=== PATIENT | female | born 1950 | race Caucasian/White ===

== ENCOUNTER → 2019-07-28 | Outpatient (CLI) | payer MEDICARE, BC ==
[2019-07-28 16:00] LABS: HCT 38.5 % (34.0-46.0); HGB 13.3 gm/dL (11.4-16.0); MCH 31.3 pg (25.0-35.0); MCHC 34.6 g/dL (31.0-37.0); MCV 90.4 fL (80.0-100.0); Platelet Count 241 k/uL (150-450); RBC 4.25 m/uL (3.80-5.40); RDW 11.9 % (11.5-15.5); WBC 5.3 k/uL (3.8-10.6)
[2019-07-28 16:01] LABS: Appearance,Urine Clear (Clear); Bilirubin,Urine Negative (Negative); Blood,Urine Negative (Negative); Color,Urine Yellow; Glucose,Urine (UA) Negative (Negative); Ketones,Urine Negative (Negative); Leukocyte Esterase,Urine Negative (Negative); Nitrite,Urine Negative (Negative); PH, Urine 5.5 (5.0-8.0); Protein,Urine Negative (Negative); Specific Gravity,Urine 1.008 (1.001-1.035); Urobilinogen,Urine <2.0 mg/dL (<2.0)
[2019-07-28 16:05] LABS: Partial Thromboplastin Time 26.6 sec (22.0-30.0); Prothrombin Time 10.2 sec (9.0-12.0)
[2019-07-28 16:06] LABS: ALT 26 U/L (9-52); AST 29 U/L (14-36); African American GFR (CKD) >90 (>60 ml/min/1.73 sqM); Albumin 3.8 g/dL (3.5-5.0); Alkaline Phosphatase 82 U/L (38-126); Anion Gap 7 mmol/L; Blood Urea Nitrogen 11 mg/dL (7-17); Calcium 9.9 mg/dL (8.4-10.2); Carbon Dioxide 25 mmol/L (22-30); Chloride 105 mmol/L (98-107); Glucose 119 mg/dL (74-99); Non-African American GFR(CKD) 86 (>60 ml/min/1.73 sqM); Potassium 4.3 mmol/L (3.5-5.1); Sodium 137 mmol/L (137-145); Total Bilirubin 0.5 mg/dL (0.2-1.3); Total Protein 6.8 g/dL (6.3-8.2)
== END | disposition home or self-care (01) ==
LOC: LABPAT 15:10
PROVIDERS: ATTEND Orthopaedic Surgery
DX: Z01.812 Encounter for preprocedural laboratory examination (principal); Z79.01 Long term (current) use of anticoagulants
CPT/HCPCS: 36415; 80053; 81003; 85027; 85610; 85730; 87070

== ENCOUNTER → 2019-08-09 | Outpatient (CLI) | payer MEDICARE, BC | END | disposition home or self-care (01) | LOC: LABPAT 12:40 | PROVIDERS: ATTEND Orthopaedic Surgery | DX: Z53.9 Procedure and treatment not carried out, unspecified reason (principal) ==

== ENCOUNTER 2019-08-12 05:34 | Inpatient (IN) | payer MEDICARE, BC ==
[2019-08-10 14:38] VITALS: BMI 30.7
[~2019-08-12 05:34] MED LIST: ACETAMINOPHEN TAB 500 MG TAB PO ONE; GABAPENTIN 300 MG CAP PO ONE; MELOXICAM 7.5 MG TAB PO ONE; ONDANSETRON 4 MG/2 ML VIAL IVP ONE
[2019-08-12] MEDS ORDERED: DEXAMETHASONE SOD PHOSPHATE 10 MG/ML 1 ML VIAL IV ONE (05:46)
[2019-08-12] MEDS ORDERED: MIDAZOLAM 2 MG/2 ML VIAL IV PRN (05:46)
[2019-08-12] MEDS ORDERED: HYDROmorphone 0.5 MG/0.5 ML SYRINGE IVP PRN ×4 (05:46→07:00)
[2019-08-12 06:19] LABS: Glucose,Whole Blood 94 mg/dL (75-99)
[2019-08-12] MEDS: LACTATED RINGERS 1,000 ML IV SCH (06:20)
[2019-08-12] MEDS ORDERED: LIDOCAINE 1% 20 ML VIAL (10MG/ML) FOR IV START INTRADERMA ONE (06:21)
[2019-08-12] MEDS ORDERED: PROPOFOL 10 MG/ML 20 ML VIAL IV ONE (06:54)
[2019-08-12] MEDS ORDERED: MIDAZOLAM 2 MG/2 ML VIAL ONE (06:54)
[2019-08-12] MEDS ORDERED: diphenhydrAMINE 50 MG/ML 1 ML VIAL ONE (06:54)
[2019-08-12] MEDS ORDERED: fentaNYL (PF) 50 MCG/ML 2 ML AMP ONE (06:54)
[2019-08-12] MEDS ORDERED: ePHEDrine SULFATE/0.9% NACL/PF 50 MG/5 ML SYRINGE IV ONE (06:54)
[2019-08-12] MEDS ORDERED: ONDANSETRON 4 MG/2 ML VIAL ONE (06:54)
[2019-08-12] MEDS ORDERED: LACTATED RINGERS 1,000 ML BAG IV ONE (06:54)
[2019-08-12] MEDS ORDERED: SODIUM CHLORIDE 0.9% 100 ML BAG ONE (06:54)
[2019-08-12] MEDS ORDERED: TRANEXAMIC ACID 1,000 MG/10 ML VIAL ONE (06:54)
[2019-08-12] MEDS ORDERED: hydrOXYzine PAMOATE 25 MG CAP PO PRN (07:00)
[2019-08-12] MEDS ORDERED: DIAZEPAM 5 MG TAB PO PRN (07:00)
[2019-08-12] MEDS ORDERED: HYDROcodone/APAP 5-325MG 1 EACH TAB PO PRN (07:00)
[2019-08-12] MEDS ORDERED: MAGNESIUM HYDROXIDE 2,400 MG/10 ML CUP PO PRN (07:00)
[2019-08-12] MEDS ORDERED: NALOXONE 0.4 MG/ML 1 ML VIAL IV PRN (07:00)
[2019-08-12] MEDS ORDERED: TRANEXAMIC ACID 1,000 MG in SODIUM CHLORIDE 0.9% 100 ML IVPB ONE ×4 (07:15)
[2019-08-12] MEDS ORDERED: ceFAZolin 3,000 MG in SODIUM CHLORIDE 0.9% IRRIGATIO 3,000 ML IRRIGATION ONE (07:34)
[2019-08-12] MEDS: ROPIVACAINE 246.25 MG, EPINEPHrine 0.5 MG, KETOROLAC 30 MG, cloNIDine HCL/PF 80 MCG, WA... MISCELLANE ONE ×10 (07:34→08:12)
[2019-08-12] MEDS ORDERED: LACTATED RINGERS 1,000 ML IV ONE (08:24)
--- NOTE | 2019-08-12 08:33 | P.OP ---
Date of Procedure: 08/12/19 Preoperative Diagnosis: Severe osteoarthritis right hip Postoperative Diagnosis: Severe osteoarthritis right hip Procedure(s) Performed: Right total hip arthroplasty with a direct anterior approach Implants: Land and nephew Polarstem size 2 standard Land [employer] Nephew R3, 3 hole acetabular shell, 48 mm Land [employer] Nephew reflection 6.5 mm cancellus screw, 20 mm 2 Land [employer]hew R3, XLPE 20 acetabular liner Land [employer] Nephew Oxinium femoral head 32 m, +0 All components were press-fit. The articulation is Oxinium on polyethylene. Anesthesia: spinal Surgeon: Eric Trammell Laborer Pipeline #1: Bailey Hanley Estimated Blood Loss (ml): 100 Pathology: other (Femoral head) Condition: stable Disposition: PACU Indications for Procedure: After failure of conservative treatment we discussed the surgical and nonsurgical treatment options at length. Patient wishes to proceed with a total hip arthroplasty with a direct anterior approach. Complications specific to this procedure were discussed at length, including but not limited to infection, leg length discrepancy, dislocation, and nerve injury. Patient is aware of all these complications and informed consent was obtained Operative Findings: The operative findings are consistent with severe osteoarthritis of the right hip Description of Procedure: Patient was seen and evaluated in the preoperative area, consent was reviewed, and the surgical site was marked with a skin marker. Patient was then brought to the operating room and given prophylactic antibiotics intravenously. 1 g of Tranexamic acid was also given. A spinal anesthetic was administered by the anesthesia department. The patient was then placed on the [place] table with the bony prominences well-padded. The hip area was then prepped and draped in usual sterile fashion. A universal timeout was then performed, which confirmed the patient's name, surgical site, ALLERGIES, and procedure being performed. Next the incision site was located at 1 cm distal and 1 cm lateral to the anterior superior iliac spine. The skin and subcutaneous tissues were sharply incised. Incision was carefully dissected down to the fascia overlying the tensor fascia cruz muscle. This fascia was then incised in line with the incision. Next, using blunt finger dissection, the tensor fascia cruz muscle was dissected off its investing fascia. The muscle was then carefully retracted laterally with a cobra retractor over the lateral neck of the femur. Next, the circumflex vessels were identified and cauterized using the AquaMantis device. The anterior hip capsule was then exposed. The capsule was then opened and an inverted T fashion. Cobra retractors were then placed intracapsularly. The proximal femur was then visualized. The femoral neck was then osteotomized appropriate level above the lesser trochanter. Small amount of traction was placed with the [place] table. A small wedge of bone was then removed from the remaining femoral head. Next, using a corkscrew femoral head was easily removed from the acetabulum. On gross visual inspection, the femoral head had complete loss of articular cartilage in multiple periarticular osteophytes. Attention was then turned to the acetabulum. the acetabulum was exposed and any remaining labrum was excised. Sequential reaming of the acetabulum was performed using fluoroscopic guidance. When the appropriate size was reached, a trial was then placed. The position and fit of the trial was checked with fluoroscopy. The trial was then removed. Then, using fluoroscopic guidance, the final implant was impacted at 20 of anteversion and 40 of abduction, and fully seated in the acetabulum. 2 screws were then placed in the acetabulum. Again fluoroscopy was used to check position of the screws. Next, the liner was then impacted, with a 20 elevated liner located in the anterior superior quadrant. Component locking was confirmed. Attention was then directed to the femur. With the aid of the [place] table, the femur was externally rotated to approximately 130, extended, and abducted under the opposite leg. A side hook was then placed under the proximal femur, and the side hook elevator was used to elevate the proximal femur. Retractors were then placed. A capsular release was performed, as well as a release of the conjoined tendon, which afforded excellent visualization of the proximal femur. Next, a box osteotome was used to lateralize the proximal femur. A hand ii blocker was then used to locate the femoral canal. Sequential broaching was then performed with appropriate size which afforded excellent fixation in the proximal femur. A trial was then placed with appropriate head and neck, and the hip was gently reduced with the aid of the [place] table. Fluoroscopy was then used to check position of the components, as well as to ensure equal leg lengths. The hip was then gently dislocated and the trials were then removed. Final implants were then impacted and the hip was again reduced. Final fluoroscopic x-rays confirmed that the components were in anatomic position, as well as equal leg lengths. The hip was also taken through range of motion, and found to be stable. The hip was then copiously irrigated with antibiotic solution with pulsatile lavage. The hip was then irrigated with Irrisept solution. The soft tissues were then injected with a ropivacaine solution, which consisted of 246.25 mg of ropivacaine, 0.5 mg of epinephrine, 30 mg of Toradol, 80 g of clonidine, and 48.45 mL of sterile water, for a total of 100 mL of fluid injected. A second dose of 1 g of Tranexamic acid was also given. the fascia was then closed with 2-0 strata fix suture. The subcutaneous tissue was closed with 3-0 Vicryl. The subcuticular tissue was closed with 3-0 strata fix suture. The skin was then closed with Dermabond glue and a sterile silver dressing. The patient was then transferred to the recovery room in stable condition. The store assistant BERRY Sage was required due to the complexity of surgery, and the need for skilled operating room surgical technologist for positioning, draping, exposure, retraction, and closure of the wound.
[2019-08-12 08:50] LABS: Glucose,Whole Blood 171 mg/dL (75-99)
--- NOTE | 2019-08-12 10:02 | XR ---
Right hip HISTORY: Status post right hip arthroplasty Single frontal view of the right hip Patient is status post right hip arthroplasty. There is anatomic alignment. Lucency present in the so ft tissues compatible with postop state IMPRESSION: Orthopedic follow-up
--- NOTE | 2019-08-12 11:02 | XR ---
EXAMINATION TYPE: XR Hip Limited RT DATE OF EXAM: 08/12/2019 COMPARISON: NONE HISTORY: Postop TECHNIQUE: One view submitted. FINDINGS: There is postsurgical change in near anatomic alignment. There is soft tissue edema and emphysema. IMPRESSION: 1. Postoperative change. Appears in near-anatomic alignment.
[2019-08-12] MEDS: SODIUM CHLORIDE 0.9% 1,000 ML IV SCH ×2 (13:44→21:39)
--- NOTE | 2019-08-12 15:56 | FL ---
EXAMINATION TYPE: FL guidance operating room DATE OF EXAM: 08/12/2019 HISTORY: Flouroscopy time 40 seconds of fluoroscopy provided. IMPRESSION: 1. Fluoroscopy time.
[2019-08-12] MEDS: HYDROcodone/APAP 5-325MG 1 EACH TAB PO PRN ×2 (16:02→21:17)
[2019-08-12] MEDS: PROMETHAZINE 25 MG TAB PO PRN ×2 (16:02→21:17)
[2019-08-12] MEDS ORDERED: ALBUTEROL NEBULIZED 2.5 MG/3 ML INHALATION PRN (16:11)
[2019-08-12] MEDS ORDERED: ZOLPIDEM 10 MG TAB PO PRN (16:11)
[2019-08-12] MEDS ORDERED: MONTELUKAST 10 MG TAB PO SCH (21:00)
[2019-08-12] MEDS ORDERED: METOPROLOL SUCCINATE (ER) 25 MG TAB.ER.24H PO SCH (21:00)
[2019-08-12] MEDS ORDERED: metFORMIN 500 MG TAB PO SCH (21:00)
[2019-08-12] MEDS ORDERED: SENNOSIDES-DOCUSATE SODIUM 1 EACH TAB PO SCH (21:00)
[2019-08-12] MEDS ORDERED: ATORVASTATIN 20 MG TAB PO SCH (21:00)
[2019-08-12] MEDS ORDERED: DRY MOUTH SPRAY 44.3 SPRAY/44.3 ML SPRAY MUCOUS MEM PRN (22:30)
[2019-08-13 02:37] VITALS: RESP 16
[2019-08-13] MEDS: HYDROcodone/APAP 5-325MG 1 EACH TAB PO PRN ×2 (04:05→10:39)
[2019-08-13] MEDS: LACTATED RINGERS 1,000 ML IV SCH (05:22)
[2019-08-13] MEDS ORDERED: LEVOTHYROXINE 112 MCG TAB PO SCH (06:30)
[2019-08-13] MEDS ORDERED: PANTOPRAZOLE 40 MG TABLET PO SCH (07:30)
[2019-08-13 07:48] VITALS: BP 103/64; PULSE 60; TEMP 97.8
[2019-08-13 08:10] LABS: Glucose,Whole Blood 100 mg/dL (75-99)
--- NOTE | 2019-08-13 08:11 | P.DS ---
Providers Date of admission: 08/12/19 05:34 Expected date of discharge: 08/13/19 Attending physician: Eric Trammell Consults: 08/12/19 07:00 Consult Physician Routine Consulting Provider: Lc Pulliam Consult Reason/Comments: medical management and anticoagulation Do you want consulting provider notified?: Yes Primary care physician: Yony Sanders - Discharge Diagnosis(es) (1) Osteoarthritis of right hip Current Visit: Yes Status: Acute (2) S/P total hip arthroplasty Current Visit: Yes Status: Acute Hospital Course: This is a 69-year-old female with known history of degenerative arthritis of the right hip. The patient presents for evaluation. After discussion and consideration patient elects to proceed with total hip arthroplasty. The patient is seen preoperatively by Dr. Trammell and medically cleared for surgery by their primary care physician. Patient is admitted to [facility] on 08/12/2019 for total hip arthroplasty. The procedures performed without complication or sequelae. The patient is doing well postoperatively. Labs and vital signs are stable on day of discharge. On day of discharge patient's hip incision is healing well. There is minimal erythema. There is no drainage noted at this time. There is minimal soft tissue swelling to the hip and thigh. Patient has full foot and ankle motion without difficulty or pain. Calf is soft and nontender to palpation. Neurovascular status to the right lower extremity is intact. Patient is discharged home in good condition. Opioid start talking form is reviewed and signed at patient bedside. Patient takes Xarelto routinely and will resume her normal dosing for postoperative anticoagulation. Please see med rec for accurate list of home medications. Plan - Discharge Summary Discharge Rx Participant: Yes New Discharge Prescriptions: New HYDROcodone/APAP 5-325MG [Mustang 5-325] 1 - 2 tab PO Q6HR PRN #56 tab PRN Reason: Pain Promethazine [Phenergan] 12.5 mg PO Q6HR #28 tablet Sennosides [Senokot] 2 tab PO DAILY PRN #60 tablet PRN Reason: Constipation No Action Zolpidem [Ambien] 10 mg PO HS PRN PRN Reason: Insomnia Montelukast [Singulair] 10 mg PO HS Metoprolol Succinate (ER) [Toprol Xl] 25 mg PO HS metFORMIN HCL ER [Glucophage Xr] 500 mg PO HS Rivaroxaban [Xarelto] 20 mg PO HS Esomeprazole Magnesium [NexIUM] 40 mg PO BID Celecoxib [CeleBREX] 200 mg PO DAILY Albuterol Nebulized [Ventolin Nebulized] 2.5 mg INHALATION Q6H PRN PRN Reason: Dyspnea Albuterol Inhaler [Ventolin Hfa Inhaler] 1 - 2 puff INHALATION RT-Q6H PRN PRN Reason: Dyspnea Losartan [Cozaar] 50 mg PO DAILY Levothyroxine Sodium [Synthroid] 112 mcg PO DAILY Rosuvastatin [Crestor] 10 mg PO HS Dexlansoprazole [Dexilant] 60 mg PO DAILY Discharge Medication List Albuterol Inhaler [Ventolin Hfa Inhaler] 1 - 2 puff INHALATION RT-Q6H PRN 08/10/19 [History] Albuterol Nebulized [Ventolin Nebulized] 2.5 mg INHALATION Q6H PRN 08/10/19 [History] Celecoxib [CeleBREX] 200 mg PO DAILY 08/10/19 [History] Dexlansoprazole [Dexilant] 60 mg PO DAILY 08/10/19 [History] Esomeprazole Magnesium [NexIUM] 40 mg PO BID 08/10/19 [History] Levothyroxine Sodium [Synthroid] 112 mcg PO DAILY 08/10/19 [History] Losartan [Cozaar] 50 mg PO DAILY 08/10/19 [History] Metoprolol Succinate (ER) [Toprol Xl] 25 mg PO HS 08/10/19 [History] Montelukast [Singulair] 10 mg PO HS 08/10/19 [History] Rivaroxaban [Xarelto] 20 mg PO HS 08/10/19 [History] Rosuvastatin [Crestor] 10 mg PO HS 08/10/19 [History] Zolpidem [Ambien] 10 mg PO HS PRN 08/10/19 [History] metFORMIN HCL ER [Glucophage Xr] 500 mg PO HS 08/10/19 [History] HYDROcodone/APAP 5-325MG [Mustang 5-325] 1 - 2 tab PO Q6HR PRN #56 tab 08/13/19 [Rx] Promethazine [Phenergan] 12.5 mg PO Q6HR #28 tablet 08/13/19 [Rx] Sennosides [Senokot] 2 tab PO DAILY PRN #60 tablet 08/13/19 [Rx] Follow up Appointment(s)/Referral(s): Eric Trammell DO [Doctor of Osteopathic Medicine] - 2 Weeks Ambulatory/Diagnostic Orders: Walker w/ Wheels [DME.AMB1] Time Frame: 3 Months, Location: None Selected Activity/Diet/Wound Care/Special Instructions: Weightbearing as tolerated with walker. Leave dressing intact. Dressing may be removed by home care nurse or by patient in 10 days. May shower with dressing on. Continue Xarelto for postoperative anticoagulation. Recommend use of compression stockings daily for at least 2 weeks during the day to help prevent swelling and blood clots. May remove at night before sleeping. Please follow-up with [facility] in 2 weeks and call with any questions or concerns, . Discharge Disposition: HOME WITH HOME HEALTH SERVICES
[2019-08-13 08:18] LABS: Basophils % (A) 0 %; Eosinophils # (A) 0.1 k/uL (0-0.7); Eosinophils % (A) 1 %; HCT 32.9 % (34.0-46.0); HGB 11.2 gm/dL (11.4-16.0); Lymphocytes # (A) 1.7 k/uL (1.0-4.8); Lymphocytes % (A) 27 %; MCH 30.9 pg (25.0-35.0); MCHC 33.9 g/dL (31.0-37.0); Mean Platelet Volume 6.9; Monocytes # (A) 0.4 k/uL (0-1.0); Monocytes % (A) 7 %; Neutrophils # (A) 4.1 k/uL (1.3-7.7); Neutrophils % (A) 64 %; Platelet Count 197 k/uL (150-450); RBC 3.61 m/uL (3.80-5.40); RDW 12.2 % (11.5-15.5); WBC 6.4 k/uL (3.8-10.6)
[2019-08-13] MEDS ORDERED: LOSARTAN 50 MG TAB PO SCH (09:00)
[2019-08-13] MEDS ORDERED: RIVAROXABAN 20 MG TAB PO SCH (09:00)
[2019-08-13] MEDS: PROMETHAZINE 25 MG TAB PO PRN (11:07)
[2019-08-13] MEDS: SODIUM CHLORIDE 0.9% 1,000 ML IV SCH (11:10)
[2019-08-13 11:23] LABS: Glucose,Whole Blood 126 mg/dL (75-99)
== END 2019-08-13 13:57 | disposition home health service (06) | DRG 470 ==
LOC: 2ORMAIN 05:34 → 4SSUR 08:29
PROVIDERS: ADMIT Orthopaedic Surgery; ATTEND Orthopaedic Surgery
PROC: 0SR906A Replacement of Right Hip Joint with Oxidized Zirconium on Polyethylene Synthetic Substitute, Uncemented, Open Approach (ICD-10-PCS; principal; 2019-08-12 07:00)
DX: M16.11 Unilateral primary osteoarthritis, right hip (principal); I48.0 Paroxysmal atrial fibrillation; M25.512 Pain in left shoulder; M25.511 Pain in right shoulder; M25.552 Pain in left hip; M25.562 Pain in left knee; M25.561 Pain in right knee; M25.542 Pain in joints of left hand; M25.541 Pain in joints of right hand; I10 Essential (primary) hypertension; E78.5 Hyperlipidemia, unspecified; J45.909 Unspecified asthma, uncomplicated; E11.9 Type 2 diabetes mellitus without complications; E03.9 Hypothyroidism, unspecified; K21.9 Gastro-esophageal reflux disease without esophagitis; R01.1 Cardiac murmur, unspecified; G47.9 Sleep disorder, unspecified; Z79.01 Long term (current) use of anticoagulants; Z79.890 Hormone replacement therapy; Z79.84 Long term (current) use of oral hypoglycemic drugs; Z79.899 Other long term (current) drug therapy; Z88.5 Allergy status to narcotic agent; Z98.84 Bariatric surgery status; Z96.651 Presence of right artificial knee joint; Z96.611 Presence of right artificial shoulder joint; Z87.11 Personal history of peptic ulcer disease; Z83.3 Family history of diabetes mellitus; Z82.49 Family history of ischemic heart disease and other diseases of the circulatory system
CPT/HCPCS: 36415; 73501; 85025; 86850; 86891; 86900; 86901; 88300

== ENCOUNTER → 2022-01-24 | Outpatient (CLI) | payer MEDICARE ==
[2022-01-24 17:29] LABS: INR 1.1 (<1.2)
[2022-01-24 17:30] LABS: Partial Thromboplastin Time 28.6 sec (22.0-30.0); Prothrombin Time 11.5 sec (9.0-12.0)
[2022-01-24 22:55] LABS: African American GFR (CKD) 86.6 (60.0-200.0); Albumin 4.1 g/dL (3.8-4.9); Albumin/Globulin Ratio 1.32 (1.60-3.17); Anion Gap 9.8 mmol/L (10.00-18.00); BUN/Creat Ratio 15.75 Ratio (12.00-20.00); Blood Urea Nitrogen 12.6 mg/dL (9.0-27.0); Calcium 10.1 mg/dL (8.7-10.3); Carbon Dioxide 22.2 mmol/L (20.0-27.5); Globulin 3.1 g/dL (1.6-3.3); Non-African American GFR(CKD) 74.7 (60.0-200.0); Potassium 4.1 mmol/L (3.5-5.5); Total Bilirubin 0.3 mg/dL (0.30-1.20); Total Protein 7.2 g/dL (6.2-8.2)
[2022-01-24 23:23] LABS: HCT 41.4 % (37.2-46.3); HGB 13.4 g/dL (12.0-15.0); MCHC 32.4 g/dL (32.0-37.0); MCV 92.6 fL (80.0-97.0); Mean Platelet Volume 9.4 fL (9.5-12.2); NRBC Per 100 WBC 0 /100 WBCS (0.0-0.0); Platelet Count 226 X 10*3/uL (140-440); RBC 4.47 X 10*6/uL (4.10-5.20); RDW 12.3 % (11.5-14.5)
[2022-01-25 04:39] LABS: Appearance,Urine Clear (Clear); Bacteria,Urine None Seen /HPF (None Seen); Bilirubin,Urine Small (Negative); Blood,Urine Negative (Negative); Calcium Oxalate Crystals,Urine Present /LPF (None Seen); Color,Urine Dark Yellow (Yellow); Ketones,Urine Trace mg/dL (Negative); Nitrite,Urine Negative (Negative); Specific Gravity,Urine >1.035 (1.001-1.030)
== END | disposition home or self-care (01) ==
LOC: LABPAT 16:52
PROVIDERS: ATTEND Orthopaedic Surgery
DX: Z01.812 Encounter for preprocedural laboratory examination (principal)
CPT/HCPCS: 36415; 80053; 81001; 85027; 85610; 85730; 87070; 93005

== ENCOUNTER 2022-02-05 09:54 | Day surgery (SDC) | payer BC, MEDICARE ==
[~2022-02-05 09:54] MED LIST changes: -ACETAMINOPHEN TAB 500 MG TAB PO ONE; +ACETAMINOPHEN TAB 500 MG TAB PO PRN; -GABAPENTIN 300 MG CAP PO ONE; +GABAPENTIN 300 MG CAP PO PRN; +LACTATED RINGERS 1,000 ML IV SCH; +LIDOCAINE 1% (10MG/ML) FOR IV START INTRADERMA PRN; -MELOXICAM 7.5 MG TAB PO ONE; +MELOXICAM 7.5 MG TAB PO PRN; +TRANEXAMIC ACID IN NACL,ISO-OS 1,000 MG in SALINE 1 100ML.BAG IVPB PRN; +fentaNYL (PF) 50 MCG/ML 2 ML AMP IV PRN
[2022-02-05 10:36] LABS: Glucose,Whole Blood 104 mg/dL (75-99)
[2022-02-05] MEDS ORDERED: DEXAMETHASONE SOD PHOSPHATE 4 MG/ML 1 ML VIAL IVP ONE (10:53)
[2022-02-05] MEDS ORDERED: SCOPOLAMINE 1 MG/72 HR PATCH TRANSDERM ONE (10:54)
[2022-02-05] MEDS ORDERED: MAGNESIUM HYDROXIDE 2,400 MG/10 ML CUP PO PRN (11:16)
[2022-02-05] MEDS ORDERED: NALOXONE 0.4 MG/ML 1 ML VIAL IV PRN (11:16)
[2022-02-05] MEDS ORDERED: ONDANSETRON 4 MG/2 ML VIAL IVP PRN (11:16)
[2022-02-05] MEDS ORDERED: diazePAM 5 MG TAB PO PRN (11:16)
[2022-02-05] MEDS ORDERED: HYDROmorphone 0.5 MG/0.5 ML SYRINGE IVP PRN ×2 (11:16)
[2022-02-05] MEDS ORDERED: traMADol 50 MG TAB PO PRN (11:16)
[2022-02-05] MEDS ORDERED: ACETAMINOPHEN TAB 325 MG TAB PO PRN (11:16)
[2022-02-05] MEDS ORDERED: HYDROcodone/APAP 7.5-325MG 1 EACH TAB PO PRN ×2 (11:20)
[2022-02-05] MEDS ORDERED: LIDOCAINE 2% INJ 20 MG/ML (2 ML VIAL) ONE (11:46)
[2022-02-05] MEDS ORDERED: PROPOFOL 10 MG/ML 20 ML VIAL IV ONE (11:46)
[2022-02-05] MEDS ORDERED: GLYCOPYRROLATE 0.2 MG/ML 2 ML VIAL ONE (11:46)
[2022-02-05] MEDS ORDERED: fentaNYL (PF) 50 MCG/ML 2 ML AMP ONE (11:46)
[2022-02-05] MEDS ORDERED: TRANEXAMIC ACID IN NACL,ISO-OS 1,000 MG/100 ML BAG ONE (11:46)
[2022-02-05] MEDS ORDERED: DIVALPROEX 250 MG TABLET.DR PO ONE (11:46)
[2022-02-05] MEDS ORDERED: MIDAZOLAM 2 MG/2 ML VIAL ONE (11:46)
[2022-02-05] MEDS ORDERED: ePHEDrine 50 MG/ML 1 ML VIAL ONE (11:46)
[2022-02-05] MEDS ORDERED: ROPIVACAINE 5 MG/ML 30 ML VIAL MISCELLANE ONE (12:31)
[2022-02-05] MEDS ORDERED: ceFAZolin 1,000 MG in SODIUM CHLORIDE 0.9% 1,000 ML IRRIGATION ONE (12:41)
--- NOTE | 2022-02-05 13:03 | P.OP ---
Date of Procedure: 02/05/22 Preoperative Diagnosis: Severe osteoarthritis left hip Postoperative Diagnosis: Severe osteoarthritis left hip Procedure(s) Performed: Left total hip arthroplasty with a direct anterior approach Implants: Land [employer] Nephew Polarstem standard size 2 Land [employer] Nephew R3, 3 hole hemispherical acetabular shell, 48 mm Land [employer] Nephew Reflection 6.5 mm cancellus screw, 20 mm 2 Land [employer] Nephew R3, XLPE 20 acetabular liner Land [employer] Nephew Oxinium femoral head 32 m, +0 All components were press-fit. The articulation is Oxinium on polyethylene. Anesthesia: spinal Surgeon: Eric Trammell Mechanic Chief #1: Prateek Jamil Estimated Blood Loss (ml): 200 Pathology: other (Femoral head) Condition: stable Disposition: PACU Indications for Procedure: After failure of conservative treatment we discussed the surgical and nonsurgical treatment options at length. Patient wishes to proceed with a total hip arthroplasty with a direct anterior approach. Complications specific to this procedure were discussed at length, including but not limited to infection, leg length discrepancy, dislocation, nerve injury, and fracture. Covid-19 was also discussed at length with the patient, and they are aware of the current policies and procedures. The patient was given the option of delaying surgery, but they elect to proceed knowing these risks. Patient is aware of all these complications and informed consent was obtained Operative Findings: The operative findings are consistent with severe osteoarthritis of the left hip Description of Procedure: Patient was seen and evaluated in the preoperative area and the consent was reviewed. The operative site was marked with a skin marker. The patient was then brought to the operating room and given preoperative antibiotics int ravenously. 1 g of Tranexamic acid was also given intravenously. A spinal anesthetic was administered by the anesthesia department. The patient was then placed on the [place] table with the bony prominences well-padded. The hip area was then prepped with a ChloraPrep solution and draped in the usual sterile fashion. A universal timeout was then performed, which confirmed the patient's name, dany gical site, ALLERGIES, and procedure being performed on the consent. Next the incision site was located at 1 cm distal and 2 cm lateral to the anterior superior iliac spine. The skin and subcutaneous tissues were sharply incised. Incision was carefully dissected down to the fascia overlying the tensor fascia cruz muscle. This fascia was then incised in line with the incision. Care was taken to stay laterally in order to avoid injuring the lateral femoral cutaneous nerve. Next, using blunt finger dissection, the tensor fascia cruz muscle was dissected off its investing fascia. The muscle was then carefully retracted laterally with a cobra retractor over the lateral neck of the femur. Next, the circumflex vessels were identified and cauterized using the AquaMantis device. The anterior hip capsule was then exposed. The capsule was then opened and an inverted T fashion. Cobra retractors were then placed intracapsularly. The retractors were maintained intracapsular throughout the procedure. The proximal femur was then visualized. Fluoroscopic x-rays were then taken in order to evaluate the preoperative leg lengths. A small amount of traction was placed on the leg. The femoral neck was then osteotomized at the appropriate level above the lesser trochanter. A small wedge of bone was then removed from the remaining femoral head. Next, using a corkscrew the femoral head was removed from the acetabulum. On gross visual inspection, the femoral head had complete loss of articular cartilage and multiple periarticular osteophytes. The femoral head was then measured. Attention was then turned to the acetabulum. The acetabulum was exposed and any remaining labrum was excised. Sequential reaming of the acetabulum was performed using fluoroscopic guidance until there was a good bed of bleeding cancellus bone. When the appropriate size was reached, a trial was then placed. The position and fit of the trial was checked with fluoroscopy. The trial was then removed. Then, using fluoroscopic guidance, the final implant was impacted at 20 of anteversion and 40 of abduction, and fully seated in the acetabulum. 2 screws were then placed in the acetabulum. Again fluoroscopy was used to check position of the screws. Next, the liner was then impacted, with a 20 elevated liner located in the anterior superior quadrant. Component locking was confirmed. Attention was then directed to the femur. With the aid of the [place] table, the femur was externally rotated to approximately 130, extended, and adducted under the opposite leg. A side hook was then placed under the proximal femur, and the side hook elevator was used to elevate the proximal femur while releasing the capsule. Retractors were then placed. A capsular release was performed, as well as a release of the conjoined tendon, which afforded excellent visualization of the proximal femur. Next, a box osteotome was used to lateralize the proximal femur. A merchandise processor was then used to locate the femoral canal. Sequential broaching was then performed with appropriate size which afforded excellent fixation in the proximal femur. A trial was then placed with appropriate head and neck, and the hip was gently reduced with the aid of the [place] table. Fluoroscopy was then used to check position of the components, as well as to ensure equal leg lengths. The hip was then gently dislocated and the trials were then removed. Final implants were then impacted and the hip was again reduced. Final fluoroscopic x-rays confirmed that the components were in anatomic position, as well as equal leg lengths. The hip was also taken through range of motion, and found to be stable. The hip was then copiously irrigated with antibiotic solution with pulsatile lavage. The hip was then irrigated with Irrisept solution. The soft tissues were then injected with a ropivacaine solution. A second dose of 1 g of Tranexamic acid was also given intravenously. The fascia was then closed with 2-0 strata fix suture. The subcutaneous tissue was closed with 3-0 Vicryl. The subcuticular tissue was closed with 3-0 strata fix suture. The skin was then closed with Exofin skin glue. After the glue and dried, and Optifoam silver impregnated dressing was applied. The patient was then transferred to the recovery room in stable condition. The housing assistant property manager BERRY Cannon was required due to the complexity of surgery, and the need for skilled surgical services tech for positioning, draping, exposure, retraction, and closure of the wound.
[2022-02-05] MEDS ORDERED: LACTATED RINGERS 1,000 ML IV ONE (13:12)
[2022-02-05 13:57] LABS: Glucose,Whole Blood 132 mg/dL (75-99)
--- NOTE | 2022-02-05 14:19 | XR ---
EXAMINATION TYPE: XR Hip Limited LT DATE OF EXAM: 02/05/2022 COMPARISON: NONE HISTORY: Postop TECHNIQUE: One view submitted. FINDINGS: There is postsurgical change in near anatomic alignment. There is soft tissue edema and emphysema. IMPRESSION: 1. Postoperative change. Appears in near-anatomic alignment.
[2022-02-05] MEDS ORDERED: ALBUTEROL NEBULIZED 2.5 MG/3 ML INHALATION PRN (15:54)
--- NOTE | 2022-02-05 15:56 | FL ---
EXAMINATION TYPE: FL guidance operating room DATE OF EXAM: 02/05/2022 HISTORY: Fluoroscopy time 47 seconds of fluoroscopy provided. IMPRESSION: 1. Fluoroscopy time.
[2022-02-05 16:24] LABS: HCT 41.3 % (34.0-46.0); HGB 13.2 gm/dL (11.4-16.0); MCH 29.8 pg (25.0-35.0); Mean Platelet Volume 7.1; RBC 4.44 m/uL (3.80-5.40); RDW 12.1 % (11.5-15.5); WBC 8.2 k/uL (3.8-10.6)
--- NOTE | 2022-02-05 16:27 | P.CONS ---
History of Present Illness - Reason for Consult Consult date: 02/05/22 - Chief Complaint Medical management - History of Present Illness 72-year-old woman with medical history of hypertension, hyperlipidemia, diabetes type 2, hypothyroidism, paroxysmal atrial fibrillation presented for elective left total hip arthroplasty. Medicine consulted for medical management. Patient has no medical complaints at this time, only complaint is very mild left hip pain. She denies fevers, chills, nausea, vomiting, chest pain, palpitations, syncope, presyncope, cough, dyspnea, abdominal pain, constipation, diarrhea, dysuria, dyschezia, numbness/weakness of extremities. Upon my evaluation, patient's afebrile, 150/67, heart rate 65, 98% or better. No labs to review. Hip x-rays demonstrate appropriate fixation status post left hip total arthroplasty. All Systems reviewed and pertinent positives and negatives noted in HPI, all other symptoms are negative Gen: in no apparent distress, resting comfortably in bed Eyes: PERRL, no scleral injection or icterus HENT: normocephalic, atraumatic, good hearing acuity, moist mucous membranes Neck: no tracheal deviation, full range of motion Resp: good air exchange, breathing comfortably with no accessory muscle use, no tactile fremitus CVS: good distal perfusion x 4, no pitting edema GI: soft, NTTP, ND, no hepatosplenomegaly : no suprapubic tenderness, no CVAT, gruber catheter not present MSK: no clubbing, no cyanosis, no noted contractures of extremities Skin: no noted rashes, petechiae; temperature of skin is appropriate Neuro: moving all extremities without signs of weakness, CN II-XII intact Psych: cooperative, euthymic mood, insight and judgment intact Labs and imaging as above Assessment/plan: Hypertension Hyperlipidemia Diabetes type 2 Hypothyroidism Paroxysmal atrial fibrillation Asthma Hx of PUD -Home medications reviewed and reconciled -low dose SSI Left hip osteoarthritis Status post left hip total arthroplasty -Timing of restart for Xarelto deferred to primary team -Pain control per primary team/anesthesia Patient is full code Past Medical History Past Medical History: Atrial Fibrillation, Asthma, Diabetes Mellitus, GERD/Reflux, Hyperlipidemia, Hypertension, Osteoarthritis (OA), Thyroid Disorder Additional Past Medical History / Comment(s): hiatal hernia History of Any Multi-Drug Resistant Organisms: None Reported Past Surgical History: Back Surgery, Bariatric Surgery, Section, Joint Replacement, Orthopedic Surgery Additional Past Surgical History / Comment(s): debbie. knees replaced, debbie. elbow & debbie. carpal tunnel, foot surg., stomach stapling back in 80's, TOTAL RIGHT HIP SURGERY, Past Anesthesia/Blood Transfusion Reactions: No Reported Reaction, Family History of Problems w/ Anesthesia, Motion Sickness Additional Past Anesthesia/Blood Transfusion Reaction / Comm: daughter had problems w/intubation Past Psychological History: No Psychological Hx Reported Smoking Status: Never smoker Past Alcohol Use History: Occasional Past Drug Use History: None Reported Additional Drug Use History / Comment(s): topical cream only but just occasionally - Past Family History Mother Family Medical History: No Reported History Brother(s) Family Medical History: Cancer Medications and Allergies Home Medications Medication Instructions Recorded Confirmed Type Albuterol Inhaler (Mhu) [Ventolin 1 - 2 puff INHALATION RT-Q6H PRN 08/10/19 02/01/22 History Hfa Inhaler] Celecoxib [CeleBREX] 200 mg PO DAILY 08/10/19 02/01/22 History Dexlansoprazole [Dexilant] 60 mg PO DAILY 08/10/19 02/01/22 History Esomeprazole Magnesium [NexIUM] 40 mg PO HS 08/10/19 02/01/22 History Levothyroxine Sodium [Synthroid] 112 mcg PO DAILY 08/10/19 02/01/22 History Losartan [Cozaar] 50 mg PO BID 08/10/19 02/01/22 History Metoprolol Succinate (ER) [Toprol 25 mg PO BID 08/10/19 02/01/22 History Xl] Montelukast [Singulair] 10 mg PO HS 08/10/19 02/01/22 History Rivaroxaban [Xarelto] 20 mg PO HS 08/10/19 02/01/22 History Rosuvastatin [Crestor] 10 mg PO HS 08/10/19 02/01/22 History Zolpidem [Ambien] 10 mg PO HS 08/10/19 02/01/22 History metFORMIN HCL ER [Glucophage Xr] 500 mg PO HS 08/10/19 02/01/22 History Venlafaxine HCl [Effexor] 25 mg PO BID 02/01/22 02/01/22 History Allergies Allergy/AdvReac Type Severity Reaction Status Date / Time morphine AdvReac Nausea & Verified 02/01/22 11:33 Vomiting pain medication AdvReac Nausea & Uncoded 02/01/22 11:33 Vomiting Physical Exam Osteopathic Statement: *. No significant issues noted on an osteopathic structural exam other than those noted in the History and Physical/Consult. Vitals: Vital Signs Temp Pulse Pulse Resp BP Pulse Ox 02/05/22 15:33 65 16 150/67 98 02/05/22 15:01 64 16 164/62 99 02/05/22 14:46 51 L 16 159/71 100 02/05/22 14:31 90 16 145/67 97 02/05/22 14:16 56 L 16 152/71 99 02/05/22 14:01 52 L 16 135/60 95 02/05/22 13:46 55 L 16 114/55 97 02/05/22 13:33 96.8 F L 59 L 12 101/51 98 02/05/22 10:47 98 F 56 L 20 183/86 98 Intake and Output 02/05/22 02/05/22 02/05/22 06:59 14:59 22:59 Intake Total 1051 300 Output Total 200 Balance 851 300 Intake: IV 1051 300 Output: Estimated Blood Loss 200 Other: Weight 92 kg Results Labs: Abnormal Lab Results - Last 24 Hours (Table) 02/05/22 02/05/22 Range/Units 10:28 13:55 POC Glucose (mg/dL) 104 H 132 H (75-99) mg/dL
[2022-02-05 16:34] LABS: African American GFR (CKD) >90 (>60 ml/min/1.73 sqM); Anion Gap 9 mmol/L; Blood Urea Nitrogen 10 mg/dL (7-17); Calcium 9.8 mg/dL (8.4-10.2); Carbon Dioxide 24 mmol/L (22-30); Chloride 107 mmol/L (98-107); Glucose 158 mg/dL (74-99); Non-African American GFR(CKD) >90 (>60 ml/min/1.73 sqM); Potassium 4.6 mmol/L (3.5-5.1); Sodium 140 mmol/L (137-145)
[2022-02-05] MEDS: MULTIVITAMINS, THERA 1 EACH TAB PO SCH (17:09)
[2022-02-05] MEDS: LACTATED RINGERS 1,000 ML IV SCH (17:09)
[2022-02-05 17:26] LABS: Lymphocytes # (M) 0.82 k/uL (1.0-4.8); Monocytes # (M) 0.16 k/uL (0-1.0); Neutrophils # (M) 7.22 k/uL (1.3-7.7); Neutrophils % (M) 88 %; Nucleated Red Blood Cells 0 /100 WBC (0-0); Total Cells Counted 100
[2022-02-05 17:28] LABS: Platelet Count 225 k/uL (150-450)
[2022-02-05] MEDS: HYDROmorphone 0.5 MG/0.5 ML SYRINGE IVP PRN ×2 (17:38→20:21)
[2022-02-05] MEDS: LOSARTAN 50 MG TAB PO SCH (20:15)
[2022-02-05] MEDS: METOPROLOL SUCCINATE (ER) 25 MG TAB.ER.24H PO SCH (20:15)
[2022-02-05] MEDS: VENLAFAXINE HCL 25 MG TAB PO SCH (20:16)
[2022-02-05] MEDS ORDERED: ASPIRIN 81 MG PO SCH (21:00)
[2022-02-05] MEDS ORDERED: TEMAZEPAM 15 MG CAP PO PRN (21:00)
[2022-02-05] MEDS ORDERED: SENNOSIDES-DOCUSATE SODIUM 1 EACH TAB PO SCH (21:00)
[2022-02-05] MEDS ORDERED: ZOLPIDEM 10 MG TAB PO SCH (21:00)
[2022-02-05] MEDS ORDERED: ATORVASTATIN 20 MG TAB PO SCH (21:00)
[2022-02-05] MEDS ORDERED: MONTELUKAST 10 MG TAB PO SCH (21:00)
[2022-02-05] MEDS ORDERED: PANTOPRAZOLE 40 MG TABLET PO SCH (21:00)
[2022-02-05 21:13] LABS: Glucose,Whole Blood 184 mg/dL (75-99)
[2022-02-05] MEDS ORDERED: PROMETHAZINE 25 MG TAB PO STA (21:39)
[2022-02-05] MEDS ORDERED: RIVAROXABAN 20 MG TAB PO SCH (21:45)
[2022-02-05] MEDS: BENZOCAINE/MENTHOL LOZENG 1 EACH LOZENGE MUCOUS MEM PRN (23:49)
[2022-02-06] MEDS: HYDROmorphone 0.5 MG/0.5 ML SYRINGE IVP PRN ×2 (02:58→08:49)
[2022-02-06] MEDS: BENZOCAINE/MENTHOL LOZENG 1 EACH LOZENGE MUCOUS MEM PRN (05:08)
[2022-02-06 06:25] LABS: Basophils % (A) 0 %; Eosinophils % (A) 0 %; HCT 37.1 % (34.0-46.0); HGB 12.3 gm/dL (11.4-16.0); Lymphocytes # (A) 1.5 k/uL (1.0-4.8); Lymphocytes % (A) 17 %; MCH 30.5 pg (25.0-35.0); MCHC 33.3 g/dL (31.0-37.0); MCV 91.8 fL (80.0-100.0); Mean Platelet Volume 7.5; Monocytes # (A) 0.5 k/uL (0-1.0); Monocytes % (A) 6 %; Neutrophils # (A) 6.7 k/uL (1.3-7.7); Neutrophils % (A) 75 %; Platelet Count 227 k/uL (150-450); RBC 4.04 m/uL (3.80-5.40); RDW 12.6 % (11.5-15.5)
[2022-02-06] MEDS ORDERED: LEVOTHYROXINE 112 MCG TAB PO SCH (06:30)
[2022-02-06 06:51] LABS: Glucose,Whole Blood 136 mg/dL (75-99)
[2022-02-06 07:19] LABS: African American GFR (CKD) >90 (>60 ml/min/1.73 sqM); Anion Gap 7 mmol/L; Blood Urea Nitrogen 10 mg/dL (7-17); Calcium 9.7 mg/dL (8.4-10.2); Carbon Dioxide 22 mmol/L (22-30); Chloride 109 mmol/L (98-107); Glucose 133 mg/dL (74-99); Non-African American GFR(CKD) >90 (>60 ml/min/1.73 sqM); Sodium 138 mmol/L (137-145)
[2022-02-06] MEDS: MULTIVITAMINS, THERA 1 EACH TAB PO SCH (07:29)
[2022-02-06] MEDS: METOPROLOL SUCCINATE (ER) 25 MG TAB.ER.24H PO SCH (07:29)
[2022-02-06] MEDS: VENLAFAXINE HCL 25 MG TAB PO SCH (07:29)
[2022-02-06] MEDS: LOSARTAN 50 MG TAB PO SCH (07:29)
[2022-02-06] MEDS ORDERED: PANTOPRAZOLE 40 MG TABLET PO SCH (07:30)
[2022-02-06 07:32] VITALS: BP 132/71; PULSE 61; RESP 17; TEMP 97.9
--- NOTE | 2022-02-06 08:20 | P.DS ---
Providers Expected date of discharge: 02/06/22 Attending physician: Eric Trammell Consults: 02/05/22 11:16 Consult Physician Routine Consulting Provider: Alanis Ansari Consult Reason/Comments: post op medical management Do you want consulting provider notified?: Yes Primary care physician: Lakesha Solis MD - Discharge Diagnosis(es) (1) Primary localized osteoarthritis of left hip Current Visit: Yes Status: Acute (2) Status post total hip replacement, left Current Visit: Yes Status: Acute Hospital Course: This is a 72 -year-old Female with known history of degenerative arthritis of the Left hip. The patient presents for evaluation. After discussion and consideration patient elects to proceed with total hip arthroplasty with direct anterior approach. The patient is seen preoperatively by primary care physician and cleared for surgery. Patient is admitted to [facility] on 02/05/2022 for total hip arthroplasty with direct anterior approach. The procedure is performed without complication or sequelae. The patient is doing well postoperatively. Labs and vital signs are stable on day of discharge. On day of discharge patient's hip incision is healing well. There is minimal erythema. There is no drainage noted at this time. There is minimal soft tissue swelling to the hip and thigh. Patient has full foot and ankle motion without difficulty or pain. Neurovascular status to the lower extremity is intact. Patient is discharged to home in good condition. Please see med rec for accurate list of home medications. Patient Condition at Discharge: Good Plan - Discharge Summary Discharge Rx Participant: Yes New Discharge Prescriptions: New Sennosides-Docusate Sodium [Senokot-S] 1 tab PO BID #60 tablet Ondansetron Odt [Zofran Odt] 4 mg PO Q8HR PRN #14 tab PRN Reason: Nausea HYDROcodone/APAP 7.5-325MG [[place] 7.5-325] 1 - 2 tab PO Q6HR PRN #32 tab PRN Reason: Pain No Action Zolpidem [Ambien] 10 mg PO HS Montelukast [Singulair] 10 mg PO HS Metoprolol Succinate (ER) [Toprol Xl] 25 mg PO BID metFORMIN HCL ER [Glucophage Xr] 500 mg PO HS Rivaroxaban [Xarelto] 20 mg PO HS Esomeprazole Magnesium [NexIUM] 40 mg PO HS Celecoxib [CeleBREX] 200 mg PO DAILY Albuterol Inhaler (Mhu) [Ventolin Hfa Inhaler] 1 - 2 puff INHALATION RT-Q6H PRN PRN Reason: Dyspnea Losartan [Cozaar] 50 mg PO BID Levothyroxine Sodium [Synthroid] 112 mcg PO DAILY Rosuvastatin [Crestor] 10 mg PO HS Dexlansoprazole [Dexilant] 60 mg PO DAILY Venlafaxine HCl [Effexor] 25 mg PO BID Discharge Medication List Albuterol Inhaler (Mhu) [Ventolin Hfa Inhaler] 1 - 2 puff INHALATION RT-Q6H PRN 08/10/19 [History] Celecoxib [CeleBREX] 200 mg PO DAILY 08/10/19 [History] Dexlansoprazole [Dexilant] 60 mg PO DAILY 08/10/19 [History] Esomeprazole Magnesium [NexIUM] 40 mg PO HS 08/10/19 [History] Levothyroxine Sodium [Synthroid] 112 mcg PO DAILY 08/10/19 [History] Losartan [Cozaar] 50 mg PO BID 08/10/19 [History] Metoprolol Succinate (ER) [Toprol Xl] 25 mg PO BID 08/10/19 [History] Montelukast [Singulair] 10 mg PO HS 08/10/19 [History] Rivaroxaban [Xarelto] 20 mg PO HS 08/10/19 [History] Rosuvastatin [Crestor] 10 mg PO HS 08/10/19 [History] Zolpidem [Ambien] 10 mg PO HS 08/10/19 [History] metFORMIN HCL ER [Glucophage Xr] 500 mg PO HS 08/10/19 [History] Venlafaxine HCl [Effexor] 25 mg PO BID 02/01/22 [History] HYDROcodone/APAP 7.5-325MG [[place] 7.5-325] 1 - 2 tab PO Q6HR PRN #32 tab 02/06/22 [Rx] Ondansetron Odt [Zofran Odt] 4 mg PO Q8HR PRN #14 tab 02/06/22 [Rx] Sennosides-Docusate Sodium [Senokot-S] 1 tab PO BID #60 tablet 02/06/22 [Rx] Follow up Appointment(s)/Referral(s): Eric Trammell DO [Doctor of Osteopathic Medicine] - 2 Weeks Activity/Diet/Wound Care/Special Instructions: May bear wt as tolerated w walker. Remove Optifoam dressing 1 week post op.
[2022-02-06] MEDS: LACTATED RINGERS 1,000 ML IV SCH (09:52)
[2022-02-06 11:25] LABS: Glucose,Whole Blood 115 mg/dL (75-99)
--- NOTE | 2022-02-06 15:41 | P.PN ---
Subjective Progress Note Date: 02/06/22 (delayed charting see at 0945) Patient is a 72-year-old woman with medical history of hypertension, hyperlipidemia, diabetes type 2, hypothyroidism, paroxysmal atrial fibrillation presented for elective left total hip arthroplasty. Patient seen and examined at bedside. No chest pain, SOB, nuasee. Doing well pain oneil. Diabetes well controlled at baseline. States last A1C 6.1 General: non toxic, no distress, appears at stated age Derm: warm, dry Head: atraumatic, normocephalic, symmetric Eyes: EOMI, no lid lag, anicteric sclera Mouth: no lip lesion, mucus membranes moist Cardiovascular: S1S2 reg, no murmur, positive posterior tibial pulse bilateral, Lungs: Decreased bs bilateral, no rhonchi, no rales , no accessory muscle use Ext: no gross muscle atrophy, no edema, no contractures Neuro: CN II-XI grossly intact, no focal neuro deficits Psych: Alert, oriented, appropriate affect Assessment/plan: Hypertension Hyperlipidemia Diabetes type 2 Hypothyroidism Paroxysmal atrial fibrillation Asthma Hx of PUD - home med recs addressed for discharge. - monitor blood sugar daily - follow-up with PCP next week Left hip osteoarthritis Thank you for allowing us to participate in the care of this pleasant patient. Do not hesitate to contact us with questions. Someone can be reached from the [facility] hospitalist group all hours of the day at [phone] or via [employer] [email or web address]. Objective - Vital Signs Vital signs: Vital Signs Temp 97.9 F 02/06/22 07:31 Pulse 61 02/06/22 08:00 Resp 17 02/06/22 08:00 BP 132/71 02/06/22 07:31 Pulse Ox 97 02/06/22 07:31 FiO2 Intake & Output 02/05/22 02/06/22 02/06/22 18:59 06:59 18:59 Intake Total 1351 Output Total 200 Balance 1151 Weight 92 kg Intake: IV 1351 Output: Estimated Blood Loss 200 Other: Voiding Method Toilet Toilet # Voids 1 5 # Bowel Movements 0 0 - Labs CBC & Chem 7: 02/06/22 05:35 02/06/22 05:35 Labs: Abnormal Lab Results - Last 24 Hours (Table) 02/05/22 02/05/22 02/05/22 Range/Units 16:01 16:11 21:04 Lymphocytes # (Manual) 0.82 L (1.0-4.8) k/uL Chloride (98-107) mmol/L Glucose 158 H (74-99) mg/dL POC Glucose (mg/dL) 184 H (75-99) mg/dL 02/06/22 02/06/22 02/06/22 Range/Units 05:35 06:50 11:24 Lymphocytes # (Manual) (1.0-4.8) k/uL Chloride 109 H (98-107) mmol/L Glucose 133 H (74-99) mg/dL POC Glucose (mg/dL) 136 H 115 H (75-99) mg/dL
== END 2022-02-06 13:04 ==
LOC: OR 09:54 → 4SSUR 13:33 → OR 02-06 13:04
PROVIDERS: ATTEND Orthopaedic Surgery
DX: M16.12 Unilateral primary osteoarthritis, left hip (principal); I10 Essential (primary) hypertension; J45.909 Unspecified asthma, uncomplicated; E03.9 Hypothyroidism, unspecified; E78.5 Hyperlipidemia, unspecified; E11.9 Type 2 diabetes mellitus without complications; I48.0 Paroxysmal atrial fibrillation; K21.9 Gastro-esophageal reflux disease without esophagitis; K44.9 Diaphragmatic hernia without obstruction or gangrene; Z98.84 Bariatric surgery status; Z79.899 Other long term (current) drug therapy; Z79.890 Hormone replacement therapy; Z79.01 Long term (current) use of anticoagulants; Z88.5 Allergy status to narcotic agent; Z98.890 Other specified postprocedural states; Z87.11 Personal history of peptic ulcer disease; Z98.891 History of uterine scar from previous surgery; Z96.653 Presence of artificial knee joint, bilateral; Z83.3 Family history of diabetes mellitus; Z82.49 Family history of ischemic heart disease and other diseases of the circulatory system; Z80.9 Family history of malignant neoplasm, unspecified
CPT/HCPCS: 97161; 97535; 97165; 86900; 86901; 80048 ×2; 83735 ×2; 85025 ×2; 86850; 88300; 73501; 27130; C1776; J2250; J1100; J0690 ×3; J2405; J3010; J2795; J2704; J1170 ×2; J2001